=== PATIENT | female | born 1945 | race Caucasian/White ===

== ENCOUNTER → 2020-01-28 | Outpatient (CLI) | payer MEDICARE ==
[2020-01-28 14:55] LABS: ALT 14 U/L (4-34); AST 24 U/L (14-36); African American GFR (CKD) >90 (>60 ml/min/1.73 sqM); Albumin 3.9 g/dL (3.5-5.0); Alkaline Phosphatase 63 U/L (38-126); Anion Gap 6 mmol/L; Blood Urea Nitrogen 13 mg/dL (7-17); Calcium 9.2 mg/dL (8.4-10.2); Carbon Dioxide 25 mmol/L (22-30); Chloride 106 mmol/L (98-107); Glucose 88 mg/dL (74-99); Non-African American GFR(CKD) 86 (>60 ml/min/1.73 sqM); Phosphorus 3.4 mg/dL (2.5-4.5); Potassium 4.4 mmol/L (3.5-5.1); Sodium 137 mmol/L (137-145); Total Bilirubin 0.2 mg/dL (0.2-1.3); Total Protein 6.8 g/dL (6.3-8.2); Uric Acid 4.2 mg/dL (3.7-7.4)
[2020-01-28 15:11] LABS: T4, Free (Free Thyroxine) 0.81 ng/dL (0.78-2.19)
--- NOTE | 2020-02-03 16:01 | ECHOF ---
Referral Reason:I10 Hypertension MEASUREMENTS -------- HEIGHT: 152.4 cm WEIGHT: 72.6 kg BP: RVIDd: 3.9 cm (< 3.3) IVSd: 1.0 cm (0.6 - 1.1) LVIDd: 3.6 cm (3.9 - 5.3) LVPWd: 1.0 cm (0.6 - 1.1) IVSs: 1.8 cm LVIDs: 2.1 cm LVPWs: 1.0 cm LA Diam: 4.1 cm (2.7 - 3.8) LAESV Index (A-L): 29.82 ml/m Ao Diam: 2.6 cm (2.0 - 3.7) AV Cusp: 1.9 cm (1.5 - 2.6) LA Diam: 4.0 cm (2.7 - 3.8) MV EXCURSION: 14.924 mm (> 18.000) MV EF SLOPE: 84 mm/s (70 - 150) EPSS: 0.4 cm MV E Garrick: 0.57 m/s MV DecT: 224 ms MV A Garrick: 0.79 m/s MV E/A Ratio: 0.72 RAP: 5.00 mmHg RVSP: 26.73 mmHg FINDINGS -------- Sinus rhythm. This was a technically good study. LV size, wall thickness and systolic function are normal, with an EF greater than 55%. The left felecia tricular size is normal. The right ventricle is normal in size. The left atrium is mildly dilated. LA is midly dilated 29-33ml/m2. The right atrial size is normal. There is mild aortic valve sclerosis. There is no evidence of aortic regurgitation. Mild mitral annular calcification present. Mild mitral regurgitation is present. Mild tricuspid regurgitation present. Right ventricular systolic pressure is normal at < 35 mmHg. There is no pulmonic regurgitation present. The aortic root size is normal. There is no pericardial effusion. CONCLUSIONS -------- 1. Sinus rhythm. 2. This was a technically good study. 3. LV size, wall thickness and systolic function are normal, with an EF greater than 55%. 4. The left ventricular size is normal. 5. The right ventricle is normal in size. 6. The left atrium is mildly dilated. 7. LA is midly dilated 29-33ml/m2. 8. The right atrial size is normal. 9. There is mild aortic valve sclerosis. 10. Mild mitral annular calcification present. 11. Mild mitral regurgitation is present. 12. Mild tricuspid regurgitation present. 13. Right ventricular systolic pressure is normal at < 35 mmHg. 14. There is no pulmonic regurgitation present. 15. The aortic root size is normal. 16. There is no pericardial effusion. LOT ATTENDANT: Ashley Phillips RDCS
== END | disposition home or self-care (01) ==
LOC: RADECHMAIN 12:44
PROVIDERS: ATTEND Family Medicine
DX: I08.1 Rheumatic disorders of both mitral and tricuspid valves (principal); M81.0 Age-related osteoporosis without current pathological fracture; E55.9 Vitamin D deficiency, unspecified; N20.0 Calculus of kidney
CPT/HCPCS: 36415; 80053; 82306; 83970; 84100; 84439; 84443; 84550; 93306

== ENCOUNTER → 2020-06-16 | Outpatient (CLI) | payer MEDICARE ==
--- NOTE | 2020-06-16 22:36 | MR ---
EXAMINATION TYPE: MR iac wo/w con DATE OF EXAM: 06/16/2020 COMPARISON: None HISTORY: Loss of balance, otalgia, Rt ear pain CONTRAST: Performed utilizing 7.5 mL intravenous Gadavist gadolinium contrast. TECHNIQUE: Multiplanar, multiecho imaging on a 3.0 Gloria magnet is performed through the brain. Stud y is performed within 24 hours of arrival to the hospital. The craniovertebral junction is normal. The pituitary is normal. Diffusion-weighted imaging is performed. No abnormal hyperintensity is present to suggest an acute i ntracranial infarct or acute ischemic change. There are multiple scattered bilateral subcortical and deep white matter changes. These are nonspecif ic and can be related to microvascular ischemic change. Other etiologies including multiple sclerosis , vasculitis could be considered. Ventricles and sulci are prominent for the patient age. Mastoid air cells are clear. Internal auditory canals appear normal. No expansion or erosion is evident. Cerebellar pontine angles appear normal. No suspicious enhancement is evident within the internal auditory canals or cerebella r pontine angle or within included areas of the brain. IMPRESSIONS: 1. Normal internal auditory canals. 2. Extensive punctate deep white matter changes most likely on the basis of chronic white matter isch emic change.
== END | disposition home or self-care (01) ==
LOC: RADMRIMAIN 15:02
PROVIDERS: ATTEND Otolaryngology
DX: R90.82 White matter disease, unspecified (principal); H92.09 Otalgia, unspecified ear
CPT/HCPCS: 70553; A9585